=== PATIENT | male | born 1960 | race Caucasian/White ===

== ENCOUNTER 2016-09-08 07:50 | Day surgery (SDC) | payer MEDICAID, MEDICARE ==
[~2016-09-08] VITALS: Ht 167.6 cm; Wt 76.0 kg
[~2016-09-08 07:50] MED LIST: BUPIVACAINE/PF 0.5% ONE; HEPARIN 1,000 UNITS/ML, 10ML ONE; PROTAMINE SULFATE 10 MG/ML, 5ML ONE; THROMBIN 20,000 UNIT VIAL TP ONE
[2016-09-08] MEDS ORDERED: LIDOCAINE 1%, 2ML SQ PRN (08:30)
[2016-09-08] MEDS ORDERED: SODIUM CHLORIDE 0.9% 1,000 ML IV SCH (08:30)
[2016-09-08] MEDS ORDERED: LIDOCAINE 1%, 2ML ONE (08:35)
[2016-09-08] MEDS ORDERED: INSU100C SQ-INSULIN (08:55)
[2016-09-08] MEDS ORDERED: AMLODIPINE PO (08:55)
[2016-09-08] MEDS ORDERED: INSU100V8 SQ (08:55)
[2016-09-08] MEDS ORDERED: RENAGEL PO (08:55)
[2016-09-08] MEDS ORDERED: LISI-167 PO (08:55)
[2016-09-08] MEDS ORDERED: HYDR-879 PO (08:56)
[2016-09-08] MEDS ORDERED: IRON PO (08:57)
[2016-09-08 09:15] VITALS: BP 145/81
[2016-09-08] MEDS ORDERED: FENTANYL PF 100 MCG/2ML ONE (09:24)
[2016-09-08] MEDS ORDERED: MIDAZOLAM 1 MG/ML, 2ML ONE (09:24)
[2016-09-08] MEDS ORDERED: ANTIBIOTIC PO (09:27)
[2016-09-08] MEDS ORDERED: ONDANSETRON 2MG/ML, 2ML ONE (10:00)
[2016-09-08] MEDS ORDERED: CEFAZOLIN 1,000 MG ONE (10:00)
[2016-09-08] MEDS ORDERED: PROPOFOL 10 MG/ML, 20ML ONE (10:00)
[2016-09-08] MEDS ORDERED: DEXAMETHASONE 4 MG/ML, 1ML ONE (10:00)
[2016-09-08] MEDS ORDERED: HEPARIN 1,000 UNITS/ML, 10ML IV ONE (10:25)
[2016-09-08] MEDS ORDERED: HYDROmorphone 1 MG/ML, 1ML ONE (10:29)
[2016-09-08] MEDS ORDERED: ACETAMINOPHEN 325 MG TABLET PO PRN (10:30)
[2016-09-08] MEDS ORDERED: FENTANYL PF 100 MCG/2ML IV PRN (10:30)
[2016-09-08] MEDS ORDERED: PROMETHAZINE 25 MG/ML, 1ML IV PRN (10:30)
[2016-09-08] MEDS ORDERED: MEPERIDINE/PF 25MG/0.5ML IVPush PRN (10:30)
[2016-09-08] MEDS ORDERED: HYDROmorphone 1 MG/ML, 1ML IV PRN (10:30)
[2016-09-08] MEDS ORDERED: hydrALAzine 20 MG/ML, 1ML IV PRN (10:30)
[2016-09-08] MEDS ORDERED: ONDANSETRON 2MG/ML, 2ML IVPush PRN (10:30)
[2016-09-08] MEDS ORDERED: LABETALOL 5MG/ML, 20ML IV PRN (10:30)
[2016-09-08] MEDS ORDERED: OXYcodone 5 MG/5 ML ORAL.SOL UDC PO PRN (10:30)
[2016-09-08] MEDS ORDERED: INSULIN REGULAR 100 UNITS/ML, 3ML VIAL SQ-INSULIN SCH (11:00)
== END 2016-09-08 13:30 | disposition home or self-care (01) ==
LOC: OUT 07:50
PROVIDERS: ATTEND Surgery Vascular Surgery
DX: E11.22 Type 2 diabetes mellitus with diabetic chronic kidney disease (principal); I12.0 Hypertensive chronic kidney disease with stage 5 chronic kidney disease or end stage renal disease; N18.6 End stage renal disease; Z99.2 Dependence on renal dialysis; Z87.09 Personal history of other diseases of the respiratory system
CPT/HCPCS: 36415; 36821; 80047; 85610; 85730; 93005; J0690; J1100; J1170; J1644; J2250; J2405; J2704; J3010; J3490; J7030; J2720

== ENCOUNTER 2016-10-13 08:30 | Day surgery (SDC) | payer MEDICARE ==
[~2016-10-13] VITALS: Ht 167.6 cm; Wt 72.0 kg
[~2016-10-13 08:30] MED LIST changes: +AMLODIPINE PO; +ANTIBIOTIC PO; -BUPIVACAINE/PF 0.5% ONE; -HEPARIN 1,000 UNITS/ML, 10ML ONE; +HYDR-879 PO; +INSU100C SQ-INSULIN; +INSU100V8 SQ; +IRON PO; +LISI-167 PO; -PROTAMINE SULFATE 10 MG/ML, 5ML ONE; +RENAGEL PO; -THROMBIN 20,000 UNIT VIAL TP ONE
[2016-10-13 09:13] VITALS: BP 170/91
[2016-10-13] MEDS ORDERED: SODIUM CHLORIDE 0.9% 1,000 ML IV SCH (09:15)
[2016-10-13] MEDS ORDERED: AMLO10TA2 PO (09:24)
[2016-10-13] MEDS ORDERED: ESOM40CA PO (09:24)
[2016-10-13] MEDS ORDERED: FOLI0.8T22 PO (09:24)
[2016-10-13] MEDS ORDERED: GABA300C10 PO (09:24)
[2016-10-13] MEDS ORDERED: SEVE800T8 PO (09:59)
[2016-10-13 10:03] LABS: ASPARTATE AMINO TRANSFERASE 14 U/L (15-37); BLOOD UREA NITROGEN 31 mg/dL (7-18)
[2016-10-13] MEDS ORDERED: DEXTROSE 50%, 50ML SYRINGE ONE (10:49)
[2016-10-13] MEDS ORDERED: DEXTROSE 50%, 50ML SYRINGE IVPush ONE (11:00)
[2016-10-13] MEDS ORDERED: PROTAMINE SULFATE 10 MG/ML, 25ML ONE (11:39)
[2016-10-13] MEDS ORDERED: HEPARIN 1,000 UNITS/ML, 10ML ONE (11:39)
[2016-10-13] MEDS ORDERED: NITROGLYCERIN 5 MG/ML, 10ML ONE (11:39)
[2016-10-13] MEDS ORDERED: FLUMAZENIL 0.1 MG/1 ML, 5ML ONE (11:39)
[2016-10-13] MEDS ORDERED: FENTANYL PF 100 MCG/2ML ONE (11:39)
[2016-10-13] MEDS ORDERED: MIDAZOLAM 1 MG/ML, 5ML ONE ×2 (11:39)
[2016-10-13] MEDS ORDERED: NALOXONE 1 MG/ML, 2ML ONE (11:40)
[2016-10-13] MEDS ORDERED: VISIPAQUE 270 MG/ML, 50ML BOTTLE ONE (14:30)
[2016-10-13] MEDS ORDERED: VISIPAQUE 270 MG/ML, 150ML BOTTLE ONE (14:30)
[2016-10-13] MEDS ORDERED: CLOPIDOGREL 300 MG TABLET ONE (14:36)
[2016-10-13] MEDS ORDERED: MORPHINE SULFATE 4 MG/ML, 1ML IVPush PRN (15:30)
== END 2016-10-13 17:15 | disposition home or self-care (01) ==
LOC: OUT 08:30
PROVIDERS: ATTEND Internal Medicine Cardiovascular Disease
DX: I70.293 Other atherosclerosis of native arteries of extremities, bilateral legs (principal); E11.22 Type 2 diabetes mellitus with diabetic chronic kidney disease; I12.0 Hypertensive chronic kidney disease with stage 5 chronic kidney disease or end stage renal disease; N18.6 End stage renal disease; Z99.2 Dependence on renal dialysis; F17.200 Nicotine dependence, unspecified, uncomplicated; Z98.890 Other specified postprocedural states; Z82.49 Family history of ischemic heart disease and other diseases of the circulatory system; Z83.49 Family history of other endocrine, nutritional and metabolic diseases
CPT/HCPCS: 36415; 37225; 37228; 37232; 71020; 75625; 75716; 80053; 82962; 85025; 85610; 85730; 99156; 99157; C1714; C1725; C1751; C1760; C1769; C1884; C1894; C2623; J1644; J2250; J3010; J7030; Q9966; 37229; 75630; J2720; J2310